=== PATIENT | male | born 1955 | race Caucasian/White ===

== ENCOUNTER 2022-10-30 12:35 | Observation (INO) | payer MEDICARE, SELFPAY ==
--- NOTE | ~2022-10-30 | CT_ITS ---
EXAMINATION: CT ABDOMEN AND PELVIS WITHOUT CONTRAST CLINICAL INFORMATION: Obstructing uropathy. COMPARISON: None TECHNIQUE: Multidetector volumetric imaging was performed from the superior aspect of the liver through the pubic symphysis. Sagittal and coronal reformatted images were obtained on the technologist's workstation. This CT examination was performed using dose optimization techniques as appropriate, variously including the following: *Automated exposure control *Adjustment of mA and/or kV according to patient size (this includes techniques or standardized protocols for targeted exams where dose is matched to indication/reason for exam; i.e. extremities or head) *Use of iterative reconstruction technique DLP: 442 mGy-cm FINDINGS: LUNG BASES: Subpleural reticular opacities and mild traction bronchiectasis most notably in the posterior right lung base. Scattered bibasilar coarse and medium reticular opacities. Partial visualization of at scattered moderate scattered coronary artery calcific atherosclerosis. LIVER, GALLBLADDER, AND BILIARY TREE: The liver is normal in size, shape, and attenuation. No focal hepatic lesion or biliary ductal dilatation is present. The gallbladder is unremarkable with no evidence of radiopaque gallstones, gallbladder wall thickening, or obvious pericholecystic inflammatory changes. PANCREAS: Unremarkable. SPLEEN: Unremarkable. ADRENAL GLANDS: Unremarkable. KIDNEYS AND URETERS: A low-lying right pelvic kidney is noted. No hydronephrosis or perinephric inflammatory changes visualized. No urolithiasis noted. BLADDER: A Mejía catheter terminates within the urinary bladder. No bladder calculi visualized. Urinary bladder appears mildly distended. The urinary bladder wall is not distinctly visualized in this noncontrast exam. However findings suspicious for a concentric mural thickening of the urinary bladder suggested taking lines upon a small volume of urine within the urinary bladder utilized as contrast relative to the urinary bladder wall. GASTROINTESTINAL TRACT: The appendix is normal in appearance (series 4 image 506). No free intraperitoneal fluid or gas collections identified. No intestinal dilatation or mural thickening noted. Moderate physiologic distention of the stomach. ABDOMINAL WALL: Right inguinal hernia containing nondilated small bowel segments is noted measuring 5 cm in diameter. Small fat-containing left inguinal hernias visualized. LYMPH NODES: As VASCULAR: Moderate scattered coronary artery calcific atherosclerosis. PELVIC VISCERA: Normal size of the prostate. OSSEOUS STRUCTURES: Moderate intervertebral disc space narrowing and partially visualized posterior broad-based disc bulge L4-L5. No vertebral body compression deformities. CT/CT abdomen pelvis wo IV con IMPRESSION: Unenhanced CT of the abdomen and pelvis: *No urolithiasis or hydronephrosis noted. *Low-lying right pelvic kidney. *Mejía catheter within the urinary bladder. Findings suspicious for concentric mural thickening of the urinary bladder are present and may indicate cystitis or mural trabeculation of the urinary bladder related to chronic outlet obstruction. *Right inguinal hernia containing nonincarcerated small bowel segments. *Partial visualization of chronic appearing scattered interstitial disease of the lung bases. Fleischner guidelines were followed.
--- NOTE | ~2022-10-30 | CT_ITS ---
EXAMINATION: CT HEAD WITHOUT CONTRAST CLINICAL INFORMATION: Low platelets with hypertension, anemia, rule out bleed COMPARISON: None TECHNIQUE: Contiguous axial imaging was performed from the skull base to vertex without intravenous administration of contrast. This CT examination was performed using dose optimization techniques as appropriate, variously including the following: *Automated exposure control *Adjustment of mA and/or kV according to patient size (this includes techniques or standardized protocols for targeted exams where dose is matched to indication/reason for exam; i.e. extremities or head) *Use of iterative reconstruction technique DLP: 751 mGy-cm FINDINGS: There is no midline shift. There is no mass effect. There is no hemorrhage. The basal cisterns appear patent. The posterior fossa is grossly within normal limits. There is no extra-axial collection. The solomon-white matter some scattered areas of decreased attenuation which may be consistent with white matter ischemic change. Review of the bone windows demonstrates some sinus disease and air canal disease. CT/CT head/brain wo IV con IMPRESSION: Negative acute noncontrast CT of the brain.
[2022-10-30 13:04] VITALS: BP 138/102; PULSE 96; RESP 18; TEMP 36.2; O2SAT 100; BMI 21.9
--- NOTE | 2022-10-30 13:04 | ECG_ITS ---
Test Reason : ABNORMAL LABS Blood Pressure : / mmHG Vent. Rate : 092 BPM Atrial Rate : 092 BPM P-R Int : 144 ms QRS Dur : 076 ms QT Int : 340 ms P-R-T Axes : 070 063 070 degrees QTc Int : 420 ms Normal sinus rhythm with sinus arrhythmia Septal infarct , age undetermined Abnormal ECG When compared with ECG of 16-FEB-2007 08:35, No significant change was found Referred By: Samantha Kilgore Electronically Signed By:PAULINO VELIZ MD
--- NOTE | 2022-10-30 13:06 | ED_ITS ---
HPI - Weakness General Chief complaint: Recheck/Abnormal Lab/Rx <Samantha Kilgore MD - Last Filed: 10/30/22 13:07> Stated complaint: High Potassium Sent By Dr <Samantha Kilgore MD - Last Filed: 10/30/22 13:07> Time Seen by Provider: 10/30/22 17:36 <Samantha Kilgore MD - Last Filed: 10/30/22 13:07> Source: patient <JOSEP Magana - Last Filed: 10/30/22 22:00> Mode of arrival: ambulatory <JOSEP Magana - Last Filed: 10/30/22 22:00> Limitations: no limitations <JOSEP Magana - Last Filed: 10/30/22 22:00> History of Present Illness HPI Narrative: This is a 67-year-old male history significant for kidney problem , hepatitis C presenting to the emergency department for concerns of high potassium, was told by his PCP that his potassium level was elevated and he had to come to the emergency department for further evaluation and treatment. Patient tells me he is feeling fine and has no medical complaints today. He just wanted to come to get his potassium level normalized. Patient denies chest pain, shortness of breath, nausea, vomiting, abdominal pain, fevers, chills, upper respiratory symptoms, diarrhea, constipation, lower extremity swelling, headache, vision changes in dizziness. To note patient does report he was recently discharged from [facility] for his kidneys shutting down and was in short-term rehab at [facility] for a while, was noted to be hypertensive in triage. <JOSEP Magana - Last Filed: 10/30/22 22:00> Related Data Allergies/Adverse reactions: Allergies Allergy/AdvReac Type Severity Reaction Status Date / Time No Known Allergies Allergy Verified 10/30/22 13:04 <Samantha Kilgore MD - Last Filed: 10/30/22 13:07> Review of Systems Review of Systems: Constitutional : No Weight loss, No Fever, No Chills, No Fatigue, No Malaise ENT/Mouth : No sore throat, No Rhinorrhea Eyes: No Eye Pain, No Swelling, No Redness Cardiovascular : No Chest Pain, No SOB, No Dyspnea on Exertion, No Orthopnea, No Edema, No Palpitations Respiratory : No Cough, No Sputum, No Wheezing Gastrointestinal : No Nausea, No Vomiting, No Diarrhea, No Constipation, No abdominal Pain, No Hematochezia, No Melena Genitourinary : No Dysuria, No Urinary Frequency, No Hematuria, Musculoskeletal : No joint pain, No Myalgias, No Joint Swelling Skin : No Skin Lesions, No rash Neuro : No Weakness, No Numbness, No Dizziness, No Headache Psych : No Anxiety/Panic, No Depression All other systems reviewed and are negative <JOSEP Magana - Last Filed: 10/30/22 22:00> Yes all other systems are reviewed and are negative <JOSEP Magana - Last Filed: 10/30/22 22:00> [facility] Past Medical History Attestation statement: The following information was validated with the patient. <JOSEP Magana - Last Filed: 10/30/22 22:00> Source: old records reviewed and nursing notes reviewed <JOSEP Magana - Last Filed: 10/30/22 22:00> Social History Social History: Social History Alcohol intake: former Smoked in Last 30 Days: Yes Advance Directives: Yes Advance Directives Information Provided: Yes Advance Directives on File: No <Samantha Kilgore MD - Last Filed: 10/30/22 13:07> Physical Exam Vital Signs: Vital Signs: Last Vital Signs Temp 98.1 F 10/30/22 21:52 Pulse 106 H 10/30/22 21:52 Resp 22 H 10/30/22 21:52 BP 109/61 10/30/22 21:52 Pulse Ox 99 10/30/22 21:52 O2 Del Method 10/30/22 21:52 BMI result Body Mass Index 21.9 <Samantha Kilgore MD - Last Filed: 10/30/22 13:07> Vital Signs: Last Vital Signs Temp 98.1 F 10/30/22 21:52 Pulse 106 H 10/30/22 21:52 Resp 22 H 10/30/22 21:52 BP 109/61 10/30/22 21:52 Pulse Ox 99 10/30/22 21:52 O2 Del Method 10/30/22 21:52 BMI result Body Mass Index 21.9 HTN noted. All other vital signs stable. Patient without symptoms of hypertension. <JOSEP Magana - Last Filed: 10/30/22 22:00> Appearance: Alert.? Oriented X3.? No acute distress.? Head: Normocephalic, atraumatic, no step-offs or deformities Eyes: Pupils equal, round and reactive to light.? CVS: Normal heart rate and rhythm.? Pulses normal.? Respiratory: No respiratory distress.? Breath sounds normal.? Abdomen: Soft and nontender.? Skin: Skin warm and dry.? Normal skin color.? Normal skin turgor.? Extremities: No lower extremity edema.? No calf ttp. 5/5 strength to bilateral upper and lower extremities Back: No midline tenderness, no C-spine tenderness, full range of motion, no CVA tenderness bilaterally Neuro: Oriented X 3.? No motor deficit.? No sensory deficit. CN 2-12 intact . Normal [id number], [id number], steady tandem gait. <JOSEP Magana - Last Filed: 10/30/22 22:00> Course Course Course Narrative: rme patient is a 67-year-old male sent in by his primary physician for elevated potassium. Patient denies having any symptoms. No cough no congestion or pressure symptoms. Patient notes that he has a previous history of kidney problems. No chest pain or shortness of breath no dizziness. A stat chemistry was ordered. An EKG was ordered. Patient will need to be on a monitor until the electrolytes returned. <Samantha Kilgore MD - Last Filed: 10/30/22 13:07> Reevaluation(s) Reevaluation #1: Patient is noted to have a macrocytic anemia hemoglobin 8.7, hematocrit 27.5 MCV of 100, patient not reporting any bleeding. Platelet count 84, unsure of patient's baseline. Given the fact he is hypertensive and has low platelets will obtain a head scan to rule out spontaneous bleed in the head. Chemistry significant for elevated potassium 5.3 will give IV fluids as well as Lokelma 10 mg, and re-evaluate patient. Patient also noted to have an acute kidney injury, he will receive IV fluids and a BMP will be rechecked. <JOSEP Magana - Last Filed: 10/30/22 22:00> Time: 17:47 <JOSEP Magana - Last Filed: 10/30/22 22:00> Reevaluation #2: Patient's potassium 5.4 worsening BETSY BUN 65, creatinine 2.05 despite fluid hydration. Patient continues to be asymptomatic. No changes on EKG. Will discuss this case with hospitalist for admission. Obtained records from [facility] that show that patient was seen there from 10/06- 10/13 he was there with hyperkalemia, hyponatremia, MSSA sepsis, urinary retention. He was also diagnosed with hepatitis C while in the hospital. They determined that the BETSY was post renal, he failed a voiding trial while there, patient without urinary complaints today. His BETSY improved with administration of Mejía catheterization and gentle IV fluid resuscitation. While at [facility] his BUN was 61, creatinine of 3.2. <JOSEP Magana - Last Filed: 10/30/22 22:00> Time: 21:55 <JOSEP Magana - Last Filed: 10/30/22 22:00> Reevaluation #3: Will be admitted. <JOSEP Magana - Last Filed: 10/30/22 22:00> Time: 22:00 <JOSEP Magana - Last Filed: 10/30/22 22:00> Medications Administered Discontinued Medications Generic Name Dose Route Start Last Admin Trade Name Alvarezq PRN Reason Stop Dose Admin Albuterol Sulfate 7.5 mg/ 10 mg 10/30/22 19:53 10/30/22 20:10 Albuterol Sulfate 2.5 mg INHALE 10/30/22 19:54 10 mg ONCE ONE Administration Dextrose 25 gm 10/30/22 19:53 10/30/22 20:28 Dextrose 50 % 25 Gm/50 Ml Syringe IVPUSH 10/30/22 19:54 25 gm ONCE ONE Administration Dextrose 25 gm 10/30/22 19:53 10/30/22 20:29 Dextrose 50 % 25 Gm/50 Ml Syringe IVPUSH 10/30/22 19:54 25 gm ONCE ONE Administration Sodium Chloride 1,000 mls @ 999 mls/hr 10/30/22 17:45 10/30/22 21:49 Ns IV 10/30/22 18:45 Infused .Q1H1M ABEBA Infusion Calcium Gluconate 1 gm in 50 mls @ 50 mls/hr 10/30/22 19:53 10/30/22 21:51 Calcium Gluconate IV 10/30/22 20:52 Infused ONCE ONE Infusion Insulin Human Regular 10 unit 10/30/22 19:53 10/30/22 20:27 Insulin Regular, Human 100 Unit/Ml 3 Ml Vial IVPUSH 10/30/22 19:54 10 unit ONCE ONE Administration Sodium Zirconium Cyclosilicate 10 gm 10/30/22 17:37 10/30/22 18:22 Sodium Zirconium Cyclosilicate 10 Gm Powd.Pack PO 10/30/22 17:38 10 gm ONCE ONE Administration <Samantha Kilgore MD - Last Filed: 10/30/22 13:07> Medications Administered Discontinued Medications Generic Name Dose Route Start Last Admin Trade Name Freq PRN Reason Stop Dose Admin Albuterol Sulfate 7.5 mg/ 10 mg 10/30/22 19:53 10/30/22 20:10 Albuterol Sulfate 2.5 mg INHALE 10/30/22 19:54 10 mg ONCE ONE Administration Dextrose 25 gm 10/30/22 19:53 10/30/22 20:28 Dextrose 50 % 25 Gm/50 Ml Syringe IVPUSH 10/30/22 19:54 25 gm ONCE ONE Administration Dextrose 25 gm 10/30/22 19:53 10/30/22 20:29 Dextrose 50 % 25 Gm/50 Ml Syringe IVPUSH 10/30/22 19:54 25 gm ONCE ONE Administration Sodium Chloride 1,000 mls @ 999 mls/hr 10/30/22 17:45 10/30/22 21:49 Ns IV 10/30/22 18:45 Infused .Q1H1M ABEBA Infusion Calcium Gluconate 1 gm in 50 mls @ 50 mls/hr 10/30/22 19:53 10/30/22 21:51 Calcium Gluconate IV 10/30/22 20:52 Infused ONCE ONE Infusion Insulin Human Regular 10 unit 10/30/22 19:53 10/30/22 20:27 Insulin Regular, Human 100 Unit/Ml 3 Ml Vial IVPUSH 10/30/22 19:54 10 unit ONCE ONE Administration Sodium Zirconium Cyclosilicate 10 gm 10/30/22 17:37 10/30/22 18:22 Sodium Zirconium Cyclosilicate 10 Gm Powd.Pack PO 10/30/22 17:38 10 gm ONCE ONE Administration <JOSEP Magana - Last Filed: 10/30/22 22:00> Medical Decision Making Medical Decision Making [facility] Narrative: 1745 67-year-old male presents for elevated potassium from PCP. Unsure what his potassium level was. Recently discharged from [facility] and was in rehab for short amount of time. Noted to be hypertensive in triage no medical complaints at this time. Physical exam benign. NIH stroke scale 0. Neuro nonfocal. Plan at this time is to re-obtain labs will rule out lab error/hemolysis as primary cause of hyperkalemia. Will also obtain EKG to rule out dysrhythmia/abnormalities. <JOSEP Magana - Last Filed: 10/30/22 22:00> Critical Care Time Critical Care Time Critical Care Time: Yes <JOSEP Magana - Last Filed: 10/30/22 22:00> Total Critical Care Time: 35 <JOSEP Magana - Last Filed: 10/30/22 22:00> Attestation: I attest to this time spent taking care of the patient, obtaining history, physical, reviewing labs, imaging, speaking to my attending, obtaining records from [facility] and reviewing them. <JOSEP Magana - Last Filed: 10/30/22 22:00> Discharge Plan Discharge Clinical Impression: Abnormal laboratory test, Acute hyperkalemia, BETSY (acute kidney injury), Anemia, macrocytic <Samantha Kilgore MD - Last Filed: 10/30/22 13:07> Patient Disposition: Home, Self-Care <Samantha Kilgore MD - Last Filed: 10/30/22 13:07> Instructions: Acute Kidney Injury (DC), Hyperkalemia (ED), Anemia (ED) <Samantha Kilgore MD - Last Filed: 10/30/22 13:07> Additional Instructions: Take your medications as prescribed. If you were prescribed antibiotics today, it is important that you take your medication to their entirety, do not skip any doses, do not finish them early. Follow-up with your primary care provider this week. Return to the emergency department with new or worsening symptoms. Such as fevers, chills, chest pain, shortness of breath, nausea, vomiting, dizziness, headache, vision changes, lethargy In case of emergency call 911 Your potassium was noted to be elevated at 5.3, your given a medication called Lokelma and your potassium normalized. He was also noted to be anemic on labor atory studies, please follow-up with your primary care provider in regards to this issue. If you start bleeding per rectum or vomiting blood or bleeding from anywhere you should report to emergency department immediately. You also noted to have an acute kidney injury that improved after fluid hydration, please speak to your PCP about this issue as well. <Samantha Kilgore MD - Last Filed: 10/30/22 13:07> Referrals: Yrn Gonsales MD [Primary Care Provider] - 2 days <Samantha Kilgore MD - Last Filed: 10/30/22 13:07>
[2022-10-30 13:32] LABS: MANUAL DIFF FLAG NO
[2022-10-30 13:34] LABS: Basophils Percent Auto 0.6 % (0-2); Eosinophils Absolute Auto 0.2 X10*3/uL (0.0-0.4); Eosinophils Percent Auto 3.3 % (0-4); Hematocrit 27.5 % (42.0-52.0); Hemoglobin 8.7 g/dl (14.0-18.0); Imm Gran Abs Auto 0.04 X10*3/uL (0.00-0.03); Imm Gran Pct Auto 0.6 % (0.0-0.4); Lymphocytes Absolute Auto 1.8 X10*3/uL (1.2-4.9); Lymphocytes Percent Auto 25.9 % (20-40); Mean Corpuscular HGB Conc 31.6 g/dl (31.0-36.0); Mean Corpuscular Hemoglobin 31.6 pg (27.0-33.0); Monocytes Absolute Auto 0.5 X10*3/uL (0.1-1.2); Monocytes Percent Auto 7.7 % (2-11); Neutrophils Absolute Auto 4.3 x10*3/uL (2.0-8.3); Neutrophils Percent Auto 61.9 % (45-73); Red Blood Count 2.75 X10*6/uL (4.60-5.80); Red Cell Distribution Width 14.7 % (11.0-16.0)
[2022-10-30 13:53] LABS: Anion Gap 13 (12-20); Blood Urea Nitrogen 73 mg/dL (9-16); Calcium 8.9 mg/dL (8.4-10.2); Carbon Dioxide 22 mmol/L (22-29); Chloride 108 mmol/L (96-108); Creatinine Clr Calc Pharmacy 34.2; Estimated Glomerular Filt Rate 36; Glucose Random 88 mg/dL (60-115); Magnesium 1.6 mg/dL (1.6-2.6); Mean Platelet Volume 9.5 fL (9.4-12.4); Platelet Count 84 X10*3/uL (160-400); Potassium 5.4 mmol/L (3.3-5.1); Sodium 138 mmol/L (135-145)
[2022-10-30 18:00] VITALS: BP 143/94; PULSE 73; RESP 19; TEMP 36.9; O2SAT 100
[2022-10-30] MEDS: 0.9 % Sodium Chloride 1,000 ML 999 ML IV (18:04)
[2022-10-30] MEDS: Sodium Zirconium Cyclosilicate 10 GM POWD.PACK PO (18:22)
--- NOTE | 2022-10-30 18:39 | PC.NURSE ---
patient a/ox4 . pearrla , patient has glasses . heart rate regular at 78 beats per minute . breathing even and unlabored . skin pink warm and dry . abdomen soft . positive bowel sounds in all four quadrants . patient on director of cardiac cath lab . Iv placed in left A.C fluids started as ordered . patient has hoff catheter from home , currently has leg bag . sent in by provider for high potassium levels . medicated with Lokalma as ordered . patient aware of plan of care .
[2022-10-30 19:27] VITALS: BP 125/89; PULSE 76; RESP 21; TEMP 36.9; O2SAT 100
[2022-10-30 19:49] LABS: Alanine Aminotransferase 33 U/L (0-40); Albumin Level 3.2 g/dL (3.5-5.0); Alkaline Phosphatase 62 U/L (39-117); Anion Gap 12 (12-20); Aspartate Amino Transferase 35 U/L (5-37); Bilirubin Total 0.2 mg/dL (0.0-1.0); Blood Urea Nitrogen 66 mg/dL (9-16); Calcium 8.9 mg/dL (8.4-10.2); Carbon Dioxide 25 mmol/L (22-29); Chloride 106 mmol/L (96-108); Creatinine Clr Calc Pharmacy 33.3; Estimated Glomerular Filt Rate 35; Glucose Random 150 mg/dL (60-115); Potassium 5.9 mmol/L (3.3-5.1); Sodium 137 mmol/L (135-145); Total Protein 7.1 g/dL (6.5-8.0)
[2022-10-30] MEDS: Albuterol Sulfate 7.5 MG, Albuterol Sulfate (0.083%) 2.5 MG 10 MG INHALE (20:10)
[2022-10-30 20:12] VITALS: PULSE 73; RESP 16; O2SAT 100
[2022-10-30] MEDS: Insulin Regular, Human 100 UNIT/ML 3 ML VIAL 10 UNIT IVPUSH (20:27)
[2022-10-30] MEDS: Dextrose 50 % 25 GM/50 ML SYRINGE IVPUSH ×2 (20:28→20:29)
[2022-10-30] MEDS: Calcium Gluconate/NaCl,Iso-Osm 1 GM/50 ML PLAST..BAG IV (20:29)
[2022-10-30 21:33] LABS: Alanine Aminotransferase 31 U/L (0-40); Alkaline Phosphatase 59 U/L (39-117); Anion Gap 13 (12-20); Aspartate Amino Transferase 29 U/L (5-37); Bilirubin Total 0.2 mg/dL (0.0-1.0); Blood Urea Nitrogen 65 mg/dL (9-16); Calcium 8.5 mg/dL (8.4-10.2); Carbon Dioxide 23 mmol/L (22-29); Chloride 106 mmol/L (96-108); Creatinine Clr Calc Pharmacy 31.4; Estimated Glomerular Filt Rate 32; Glucose Random 310 mg/dL (60-115); Potassium 5.4 mmol/L (3.3-5.1); Sodium 137 mmol/L (135-145); Total Protein 6.5 g/dL (6.5-8.0)
[2022-10-30 21:52] VITALS: BP 109/61; PULSE 106; RESP 22; TEMP 36.7; O2SAT 99
--- NOTE | 2022-10-30 22:05 | PHA.MEDREC ---
Pharmacy Consult ? Medication Reconciliation Pharmacy has completed the medication reconciliation.
--- NOTE | 2022-10-30 23:12 | PC.NURSE ---
pt has pre-existing hoff catheter in place. patient requested assistance switching from leg collection bag to larger collection bag. this rn assisted pt in switching bag over
[2022-10-31 00:14] VITALS: BP 106/64; PULSE 84; RESP 18; TEMP 36.3; O2SAT 97
[2022-10-31 00:34] LABS: Glucose, Whole Blood 46 mg/dL (60-115)
--- NOTE | 2022-10-31 00:40 | P.HPHOSP_ITS ---
History of Present Illness Date of Service: 10/31/22 Chief Complaint: High potassium This is a 67-year-old male with pertinent history of hep C (untreated), urinary obstruction who was sent to the emergency department by his PCP for evaluation of hyperkalemia and BETSY. Patient was recently admitted at [facility] and discharged on 10/13 for postrenal BETSY. Hep C was diagnosed during hospital course. Patient failed voiding trial and was discharged on Mejía catheter for repeat voiding trial. Patient had been seen a doctor for years and was established with a PCP which she saw 2 days ago. Blood work was done and he was noted to have an BETSY and high potassium and was sent to the ER for further evaluation. Patient has no complaints and denies fever, chills, chest discomfort, shortness of breath, abdominal pain, changes in urinary or bowel habits. Of note, patient was admitted at [facility] from 10/06 to 10/17 urine retention, post renal BETSY, hyperkalemia, hyponatremia and MSSA bacteremia. He was discharg ed with a Mejía catheter and on cefazolin with end date 10/21. In the emergency department, patient was found have an elevated creatinine and hyperkalemia. Review of Systems Constitutional: Constitutional: Reports no additional constitutional complaints Cardiovascular: Cardiovascular: Reports no additional cardiovascular complaints Respiratory: Respiratory: Reports no additional respiratory complaints Gastrointestinal: Gastrointestinal: Reports no additional gastrointestinal complaints Genitourinary: Genitourinary: Reports no additional male genitourinary complaints [facility] Medical History (Updated 10/31/22 @ 00:54 by Celi Dorsey MD) Hepatitis C test positive MSSA bacteremia Urinary retention Pertinent family history: Does not of significant medical history in first-degree relatives Social History Alcohol intake: former Smoked in Last 30 Days: Yes Advance Directives: Yes Advance Directives Information Provided: Yes Advance Directives on File: No Meds Allergies Allergy/AdvReac Type Severity Reaction Status Date / Time No Known Allergies Allergy Verified 10/30/22 13:04 Active Medications: Current Medications Pharmacy Consult (Consult Rx Perform Med Rec) 1 each MISCELLANE ONCE PRN PRN Reason: Consult order Home Medications Medication Instructions Recorded Confirmed Last Taken Type famotidine 40 mg tablet 1 tab PO DAILY 10/30/22 10/30/22 10/30/22 History fluticasone propionate 50 1 spray intranasal DAILY 10/30/22 10/30/22 10/30/22 History mcg/actuation nasal spray,suspension Physical Exam Vital Signs and Narrative: Vital Signs: Last Vital Signs Temp 97.4 F 10/31/22 00:14 Pulse 84 10/31/22 00:14 Resp 18 10/31/22 00:14 BP 106/64 10/31/22 00:14 Pulse Ox 97 10/31/22 00:14 O2 Del Method 10/31/22 00:14 BMI result Body Mass Index 21.9 Middle-aged male lying in bed in no distress Neck supple, no JVD Regular rate and rhythm, S1-S2 heard Regular breath sounds bilaterally, no wheezing or crackles appreciated Abdomen soft nontender, no guarding, no rigidity, urinary catheter in place Patient is awake, alert and oriented to self, place, time and person ; no focal motor deficit Psych: Normal mood No pedal edema Results Labs CBC and Chem 7: 10/30/22 13:28 10/30/22 21:09 Labs: Laboratory Results - last 24 hr 10/30/22 10/30/22 10/30/22 13:28 13:28 19:22 MCV 100.0 H MCH 31.6 MCHC 31.6 RDW 14.7 Plt Count 84 L MPV 9.5 Immature Gran % (Auto) 0.6 H Neut % (Auto) 61.9 Lymph % (Auto) 25.9 Powell % (Auto) 7.7 Eos % (Auto) 3.3 Baso % (Auto) 0.6 Lymph # (Auto) 1.8 Powell # (Auto) 0.5 Eos # (Auto) 0.2 Baso # (Auto) 0.0 Abs Immat Gran (auto) 0.04 H Absolute Neuts (auto) 4.3 Absolute Nucleated RBC 0.000 Nucleated RBC % (auto) 0.0 Anion Gap 13 12 Estim Creat Clear Calc 34.2 33.3 Estimated GFR 36 35 POC Glucose Random Glucose 88 150 H Calcium 8.9 8.9 Magnesium 1.6 Total Bilirubin 0.2 AST 35 ALT 33 Alkaline Phosphatase 62 Total Creatine Kinase 35 L Total Protein 7.1 Albumin 3.2 L 10/30/22 10/31/22 21:09 00:31 MCV MCH MCHC RDW Plt Count MPV Immature Gran % (Auto) Neut % (Auto) Lymph % (Auto) Powell % (Auto) Eos % (Auto) Baso % (Auto) Lymph # (Auto) Powell # (Auto) Eos # (Auto) Baso # (Auto) Abs Immat Gran (auto) Absolute Neuts (auto) Absolute Nucleated RBC Nucleated RBC % (auto) Anion Gap 13 Estim Creat Clear Calc 31.4 Estimated GFR 32 POC Glucose 46 L* Random Glucose 310 H Calcium 8.5 Magnesium Total Bilirubin 0.2 AST 29 ALT 31 Alkaline Phosphatase 59 Total Creatine Kinase Total Protein 6.5 Albumin 3.0 L Imaging Radiologist's Impressions: Impressions Head CT 10/30/22 17:45 IMPRESSION: Negative acute noncontrast CT of the brain. Abdomen/Pelvis CT 10/30/22 22:40 IMPRESSION: Unenhanced CT of the abdomen and pelvis: *No urolithiasis or hydronephrosis noted. *Low-lying right pelvic kidney. *Mejía catheter within the urinary bladder. Findings suspicious for concentric mural thickening of the urinary bladder are present and may indicate cystitis or mural trabeculation of the urinary bladder related to chronic outlet obstruction. *Right inguinal hernia containing nonincarcerated small bowel segments. *Partial visualization of chronic appearing scattered interstitial disease of the lung bases. Fleischner guidelines were followed. Assessment and Plan (1) Acute hyperkalemia: Status: Acute (2) Urinary retention: Status: Acute (3) Hepatitis C test positive: Status: Acute (4) BETSY (acute kidney injury): Status: Acute (5) Anemia, macrocytic: Status: Acute Plan This is a 67-year-old male with pertinent history of hep C (untreated), urinary obstruction who was sent to the emergency department by his PCP for evaluation of hyperkalemia and BETSY. #. Elevated creatinine -at discharge from [facility], his creatinine was down from 13 to 3.1. -At presentation this visit, his creatinine 1.88..>2.05. Likely new baseline. Unclear etiology. Obtain records from [facility]. Consulting Nephrology -resuscitated with IV crystalloids in the ER. Monitor creatinine and urine output. Avoid nephrotoxins -UA pending #. Hyperkalemia -received temporizing measures in the ER. Administering Lokelma. Will admit with telemetry #. Hepatitis-C: Diagnosed while at [facility]. Will need outpatient follow-up and treatment #. Urinary retention: Failed voiding trial at [facility]. Initiated Flomax. Will need urology outpatient follow-up or repeat voiding trial #. Elevated blood glucose: No history of diabetes. Initiated Accu-Cheks with sliding scale insulin. Obtaining A1c #. Macrocytic anemia: Obtain B12, folic acid DVT prophylaxis: Lovenox 40 mg daily Full code Regular diet Quality Stroke Does the patient have a stroke diagnosis?: No VTE Prior VTE?: No VTE Risk Level:: Medical - moderate - high VTE Device Contraindication: Treatment Not Indicated VTE Drug Contraindication: N/A - Med Ordered
--- NOTE | 2022-10-31 00:46 | PC.NURSE ---
this rn contacted dr sanchez regarding recheck of POC. per recheck POC at this time. md at bedside discussed plan of care at this time. POC 46. med and this rn aware. per md provide pt with food and drink recheck POC in 1 hour.
--- NOTE | 2022-10-31 01:24 | PC.NURSE ---
repeat poc performed by this rn. poc 135. dr sanchez made aware.
[2022-10-31 01:28] LABS: Glucose, Whole Blood 135 mg/dL (60-115)
[2022-10-31] MEDS: Tamsulosin HCL 0.4 MG CAPSULE PO ×2 (01:28→20:51)
[2022-10-31] MEDS: Enoxaparin Sodium 40 MG/0.4 ML SYRINGE SUBCUT (01:29)
[2022-10-31 04:18] VITALS: BP 119/76; PULSE 74; RESP 18
[2022-10-31 06:37] LABS: Appearance Urine Clear; Color Urine Yellow; Glucose Urine UA Negative (Negative); Leukocyte Esterase Urine Small (1+) (Negative); Nitrite Urine Negative (Negative); PH 6.5 (5.0-9.0); Specific Gravity - Urine <= 1.005 (1.005-1.025); UMIC TRIGGER UACC YES; Urine Blood Small (1+) (Negative); Urine Ketones Negative (Negative); Urine Protein Negative (Neg-Trace)
[2022-10-31 06:43] LABS: Bacteria Urine None Seen (None Seen); Hyaline Casts Urine 0-2 /LPF (0-2); RBC Urine 0-2 /HPF (0-2); Squamous Epithelial Cell Urine 0-2 /HPF (0-2); UACC Culture Trigger YES; WBC Urine 0-5 /HPF (0-5)
[2022-10-31 06:51] LABS: MANUAL DIFF FLAG NO
[2022-10-31 06:53] LABS: Basophils Percent Auto 0.3 % (0-2); Eosinophils Absolute Auto 0.2 X10*3/uL (0.0-0.4); Eosinophils Percent Auto 2.5 % (0-4); Hematocrit 24.4 % (42.0-52.0); Hemoglobin 7.9 g/dl (14.0-18.0); Imm Gran Abs Auto 0.04 X10*3/uL (0.00-0.03); Imm Gran Pct Auto 0.5 % (0.0-0.4); Lymphocytes Absolute Auto 2.1 X10*3/uL (1.2-4.9); Lymphocytes Percent Auto 27.4 % (20-40); Mean Corpuscular HGB Conc 32.4 g/dl (31.0-36.0); Mean Corpuscular Hemoglobin 31.7 pg (27.0-33.0); Monocytes Absolute Auto 0.6 X10*3/uL (0.1-1.2); Neutrophils Absolute Auto 4.6 x10*3/uL (2.0-8.3); Neutrophils Percent Auto 61.3 % (45-73); Platelet Count 74 X10*3/uL (160-400); Red Blood Count 2.49 X10*6/uL (4.60-5.80); Red Cell Distribution Width 14.6 % (11.0-16.0); White Blood Count 7.6 X10*3/uL (4.8-10.8)
[2022-10-31 07:10] LABS: Estimated Average Glucose 100 mg/dL; Hemoglobin A1C 82.8587 umol/L; Hemoglobin A1c % 5.1 %
[2022-10-31 07:11] LABS: Anion Gap 12 (12-20); Blood Urea Nitrogen 65 mg/dL (9-16); Calcium 8.4 mg/dL (8.4-10.2); Carbon Dioxide 24 mmol/L (22-29); Chloride 108 mmol/L (96-108); Creatinine Clr Calc Pharmacy 31.4; Estimated Glomerular Filt Rate 32; Glucose Random 93 mg/dL (60-115); Potassium 5.3 mmol/L (3.3-5.1); Sodium 139 mmol/L (135-145)
[2022-10-31 07:29] VITALS: BP 122/77; PULSE 71; RESP 16; TEMP 36.7; O2SAT 98
[2022-10-31 07:34] LABS: Glucose, Whole Blood 95 mg/dL (60-115)
[2022-10-31 07:48] LABS: Folate 8.7 ng/mL (> or = 4.0); Vitamin B12 351 pg/mL (200-900)
[2022-10-31] MEDS: Famotidine 20 MG TABLET 40 MG PO (08:22)
[2022-10-31] MEDS: Sodium Zirconium Cyclosilicate 10 GM POWD.PACK PO ×3 (08:23→20:51)
[2022-10-31] MEDS: 0.9 % Sodium Chloride Flush 3 ML SYRINGE IVFLUSH ×3 (08:23→22:19)
--- NOTE | 2022-10-31 08:30 | PC.NURSE ---
pt alert and oriented, skin pwd, respirations even and unlabored, ls clear, pt denies pain at this time, vs stable and ns on the monitor.
[2022-10-31 10:20] LABS: COVID-19 Test Negative (Negative); IDNOW Serial# 9DB6401D
--- NOTE | 2022-10-31 11:44 | P.CONNP_ITS ---
History of Present Illness Reason for Consult Consult date: 10/31/22 Chief Complaint Chief complaint: High Potassium PMFSH Past Medical History Medical History (Updated 11/01/22 @ 17:16 by Madison Hogan MD) Hepatitis C test positive MSSA bacteremia Urinary retention Social History Social History Household Members: None Housing: House Do you presently have visiting nurse or other home services: No Alcohol intake: former Patient Tobacco Use Status: Current everyday Tobacco user Tobacco use type: Cigarette Cigarette Packs Per Day: 1.5 Cigarettes Per Day: 30.0 Smoked in Last 30 Days: Yes Patient Interested in Nicotine Replacement: Yes Use of substances other than those prescribed or required for medical reasons: No Currently Displaying Signs/Symptoms of Drug Intoxication Withdrawal: No Have you been hit, kicked, punched, or otherwise hurt by someone within the past year? If so, by whom?: No Do you feel safe in your current relationship?: No Current Relationship Is there a partner from a previous relationship who is making you feel unsafe now?: No Are you made to feel afraid or neglected: No Advance Directives: Yes Advance Directives on File: Yes Advance Directives Date on File: 10/31/22 Do you have thoughts of harming others: None Do you have a plan to hurt others: No Plan Recently lost weight without trying: No Nutrition Risks: No Nutritional Risk service: No Current occupational status: retired [employer] Allergies Allergy/AdvReac Type Severity Reaction Status Date / Time No Known Allergies Allergy Verified 10/30/22 13:04 Active Medications: Current Medications Acetaminophen (Acetaminophen 325 Mg Tablet) 650 mg PO Q6H PRN PRN Reason: Pain, Mild (Pain Scale 1-3) Dextrose (Dextrose 50 % 25 Gm/50 Ml Syringe) 25 gm IVPUSH Q15M PRN; Protocol PRN Reason: per Hypoglycemia Standing Ord. Enoxaparin Sodium (Enoxaparin Sodium 40 Mg/0.4 Ml Syringe) 40 mg SUBCUT Q24H [facility] Last Admin: 10/31/22 01:29 Dose: 40 mg Famotidine (Famotidine 20 Mg Tablet) 40 mg PO DAILY [facility] Last Admin: 10/31/22 08:22 Dose: 40 mg Fluticasone Propionate (Fluticasone Propionate Nasal 16 Gm [place]) 1 spray NOST RIL-B DAILY [facility] Glucose (Glucose Gel 15 Gm Gel..Gram.) 15 gm PO Q15M PRN; Protocol PRN Reason: per Hypoglycemia Standing Ord. Insulin Human Lispro (Insulin Lispro 100 Unit/Ml 3 Ml Vial) 0 unit SUBCUT Q6H [facility]; Protocol Last Admin: 10/31/22 08:08 Dose: Not Given Melatonin (Melatonin 3 Mg Tablet) 6 mg PO BEDTIME PRN PRN Reason: Insomnia Ondansetron HCl (Ondansetron Hcl 4 Mg/2 Ml Vial) 4 mg IVPUSH Q8H PRN PRN Reason: Nausea and Vomiting Pharmacy Consult (Consult Rx Perform Med Rec) 1 each MISCELLANE ONCE PRN PRN Reason: Consult order Sodium Chloride (0.9 % Sodium Chloride Flush 3 Ml Syringe) 3 ml IVFLUSH QSHIFT [facility] Last Admin: 10/31/22 08:23 Dose: 3 ml Sodium Zirconium Cyclosilicate (Sodium Zirconium Cyclosilicate 10 Gm Powd.Pack) 10 gm PO TID [facility] Stop: 11/01/22 21:01 Last Admin: 10/31/22 08:23 Dose: 10 gm Tamsulosin HCl (Tamsulosin Hcl 0.4 Mg Capsule) 0.4 mg PO BEDTIME [facility] Last Admin: 10/31/22 01:28 Dose: 0.4 mg Home Medications Medication Instructions Recorded Confirmed Last Taken Type famotidine 40 mg tablet 1 tab PO DAILY 10/30/22 10/30/22 10/30/22 History fluticasone propionate 50 1 spray intranasal DAILY 10/30/22 10/30/22 10/30/22 History mcg/actuation nasal spray,suspension Physical Exam Vital Signs: Last Vital Signs Temp 98.0 F 10/31/22 07:29 Pulse 71 10/31/22 07:29 Resp 16 10/31/22 07:29 BP 122/77 10/31/22 07:29 Pulse Ox 98 10/31/22 07:29 O2 Del Method 10/31/22 07:29 BMI result Body Mass Index 21.9 Results Lab Results Result Diagrams: 10/31/22 06:23 11/02/22 07:56 Lab results: Chemistry 10/30/22 10/30/22 10/30/22 13:28 19:22 21:09 Sodium 138 137 137 Potassium 5.4 H 5.9 H 5.4 H Carbon Dioxide 22 25 23 BUN 73 H 66 H 65 H Creatinine 1.88 H 1.93 H 2.05 H Calcium 8.9 8.9 8.5 10/31/22 06:23 Sodium 139 Potassium 5.3 H Carbon Dioxide 24 BUN 65 H Creatinine 2.05 H Calcium 8.4 Hematology 10/30/22 10/31/22 13:28 06:23 WBC 7.0 7.6 Hgb 8.7 L 7.9 L Plt Count 84 L 74 L Urinalysis 10/31/22 06:30 Urine Color Yellow Urine Appearance Clear Urine pH 6.5 Ur Specific [place] <= 1.005 Urine Protein Negative Urine Glucose (UA) Negative Urine Ketones Negative Urine Blood Small (1+) H Urine Nitrite Negative Ur Leukocyte Esterase Small (1+) H Urine RBC 0-2 Urine WBC 0-5 Ur Squamous Epith Cells 0-2 Hyaline Casts 0-2 Assessment and Plan (1) BETSY (acute kidney injury): Status: Acute Plan 67 yr old man with BETSY due to Obstructive uropathy Cr was > 12 last month Has a chronic hoff Current Cr is 2.0 - close to baseline Non oliguric No obstruction on recent imaging Still has mild hyperkalemia h/o MSSA on cefazolin Full consult dictated Procedures Date of Service Date of Service: 10/31/22
[2022-10-31] MEDS: Fluticasone Propionate Nasal 16 GM SPRAY 1 SPRAY NOSTRIL-B (11:48)
[2022-10-31 13:14] LABS: Glucose, Whole Blood 100 mg/dL (60-115)
--- NOTE | 2022-10-31 16:33 | PC.NURSE ---
pt requesting nicotine patch, messaged JOSEP Ruffin hospitalist
[2022-10-31 18:56] LABS: Glucose, Whole Blood 122 mg/dL (60-115)
[2022-10-31] MEDS: Nicotine 21 MG PATCH.TD24 TRANSDERMA (18:56)
--- NOTE | 2022-10-31 19:35 | PC.NURSE ---
Pt is alert and oriented, states he has no pain and no other complaints. This RN educated pt on reasoning for Lokelma, and blood sugar checks
[2022-10-31 20:00] VITALS: BP 146/102; PULSE 78; RESP 18; TEMP 36.1; O2SAT 97
--- NOTE | 2022-10-31 23:03 | CONS_ITS ---
DATE OF SERVICE: REASON FOR CONSULT: I was called to see the patient to assist in management of renal insufficiency and hyperkalemia. HISTORY OF PRESENT ILLNESS: To summarize, Shukri is a 67-year-old man who has not sought out any medical care for several years. About 3 weeks ago, he was admitted to [facility] where he had acute kidney injury. Serum creatinine was more than 12. He had obstructive uropathy with bilateral hydronephrosis. A Mejía catheter was inserted in the rectum. The serum creatinine promptly improved, and at the time of discharge on October 17, the creatinine was around 3.1 mg/dL. He was discharged to [facility] with a Mejía catheter. He also had MSSA infection for which he was being treated with cefazolin. There is a history of untreated hepatitis C as well. He has been admitted because of mild hyperkalemia with a potassium in the range of 5.5 and 5.9, and this consultation is requested for management of the chronic kidney disease and hyperkalemia. Ongoing medical problems include history of hepatitis C untreated, history of obstructive uropathy with chronic Mejía catheter, history of MSSA infection. FAMILY HISTORY: Not significant for this admission. SOCIAL HISTORY: History of alcohol intake in the past. He does not drink as of now. No history of any smoking at present. ALLERGIES: NO KNOWN DRUG ALLERGIES. MEDICATIONS: At the time of admission were reviewed, which include famotidine and fluticasone. All the current medications were reviewed. REVIEW OF SYSTEMS: No headache, nausea, vomiting. No abdominal pain, diarrhea, constipation. No fever. He has a chronic Mejía catheter in place. No edema. He did have edema in the past, which has improved. No rash. No clubbing. All other systems were reviewed. PHYSICAL EXAMINATION: GENERAL: Today. Shukri is a middle-aged man who appears comfortable, not in distress. NECK: Supple. No JVD. HEENT: Mucosa is moist. LUNGS: Air entry equal. No rales. HEART: S1, S2 heard. No gallop. No rub. ABDOMEN: Soft, nontender. Bowel sounds heard. Mejía catheter in place. NEURO: Alert, awake, oriented. No asterixis. EXTREMITIES: No edema. No rash. No clubbing. VITAL SIGNS: Blood pressure today was 122/71, pulse 71. He is afebrile. LABORATORY DATA: Hemoglobin 7.9, platelets 74. WBC 7.6, sodium 113, potassium 5.3, CO2 24, BUN 63, creatinine 2.05. LFTs are normal. Albumin 3.0. CT abdomen and pelvis in the ER showed low-lying right pelvic kidney. No hydronephrosis. No stones were seen. PROBLEM LIST: 1. Acute kidney injury due to obstructive uropathy. The renal function has been improving over the last several weeks, and creatinine is close to baseline. He is currently nonoliguric. No signs or symptoms of uremia. 2. Hyperkalemia in the setting of obstructive uropathy. It is unclear why his potassium is still elevated. He is not on any medications that could cause hyperkalemia. He is currently nonoliguric. No significant acidosis. High potassium intake could be a possibility. RECOMMENDATIONS: Keep Mejía catheter. Cautious IV hydration with normal saline. Lokelma 10 g p.o. if potassium more than 5.2. Keep him on a low-potassium diet. Check renal panel. No indication for dialysis. We will follow him along with the team. He needs urology followup for the ongoing obstructive uropathy. Davidson Duarte MD BPA/MODL / [phone]
[2022-11-01] VITALS: BP 132/81; PULSE 87; RESP 18; TEMP 37.3; O2SAT 99
[2022-11-01] MEDS: Enoxaparin Sodium 40 MG/0.4 ML SYRINGE SUBCUT (00:17)
[2022-11-01 00:19] LABS: Glucose, Whole Blood 102 mg/dL (60-115)
[2022-11-01 03:52] VITALS: BP 125/87; PULSE 81; RESP 16; TEMP 36.9; O2SAT 96
[2022-11-01 06:12] LABS: Glucose, Whole Blood 79 mg/dL (60-115)
[2022-11-01 08:00] VITALS: BP 147/96; PULSE 70; RESP 20; TEMP 36.6; O2SAT 97
--- NOTE | 2022-11-01 08:50 | MHC.CM.PN ---
CM met with Patient at bedside and addressed MARTIN with him, providing him with the original and placing a copy on the chart. Patient lives alone on the first floor of a 2 family house, with his Sister living upstairs. Home with new [facility] is the goal and CM has initiated and will follow for dc planning. PCP is Dr. Yrn Gonsales and Patient has received Covid/Pfizer vax x2. Patient was recently at [facility] [place] for STR.
[2022-11-01 09:31] LABS: Anion Gap 13 (12-20); Blood Urea Nitrogen 54 mg/dL (9-16); Calcium 8.3 mg/dL (8.4-10.2); Carbon Dioxide 25 mmol/L (22-29); Chloride 103 mmol/L (96-108); Creatinine Clr Calc Pharmacy 33.7; Estimated Glomerular Filt Rate 35; Glucose Random 90 mg/dL (60-115); Potassium 5.2 mmol/L (3.3-5.1); Sodium 136 mmol/L (135-145)
[2022-11-01] MEDS: Famotidine 20 MG TABLET 40 MG PO (09:46)
[2022-11-01] MEDS: Nicotine 21 MG PATCH.TD24 TRANSDERMA (09:46)
[2022-11-01] MEDS: Sodium Zirconium Cyclosilicate 10 GM POWD.PACK PO ×3 (09:46→21:28)
[2022-11-01] MEDS: Fluticasone Propionate Nasal 16 GM SPRAY 1 SPRAY NOSTRIL-B (09:47)
[2022-11-01] MEDS: 0.9 % Sodium Chloride Flush 3 ML SYRINGE IVFLUSH ×3 (09:47→21:28)
--- NOTE | 2022-11-01 11:52 | HO.PM.IMPN ---
Subjective Subjective Date of Service: 11/01/22 Interval History: f/u on hyperkalemia interval history: K still high 5.2 Review of Systems no new issues Physical Exam Vital Signs: Vital Signs: Last Vital Signs Temp 97.8 F 11/01/22 08:00 Pulse 70 11/01/22 08:00 Resp 20 11/01/22 08:00 BP 147/96 H 11/01/22 08:00 Pulse Ox 97 11/01/22 08:00 O2 Del Method 11/01/22 08:00 BMI result Body Mass Index 21.9 Const: Other: General: AO X 3, no acute distress Resp: CTA bilateral CVS: S1,S2,RRR GI: +BS, NT, no distention Skin: No rash Neuro: motor grossly intact Psych: appropriate affect Objective Data Active Medications Acetaminophen (Acetaminophen 325 Mg Tablet) 650 mg PO Q6H PRN PRN Reason: Pain, Mild (Pain Scale 1-3) Dextrose (Dextrose 50 % 25 Gm/50 Ml Syringe) 25 gm IVPUSH Q15M PRN; Protocol PRN Reason: per Hypoglycemia Standing Ord. Enoxaparin Sodium (Enoxaparin Sodium 40 Mg/0.4 Ml Syringe) 40 mg SUBCUT Q24H REPLACED BY [facility] Last Admin: 11/01/22 00:17 Dose: 40 mg Documented By: SOM Famotidine (Famotidine 20 Mg Tablet) 40 mg PO DAILY REPLACED BY [facility] Last Admin: 11/01/22 09:46 Dose: 40 mg Documented By: VICTOR HUGO Fluticasone Propionate (Fluticasone Propionate Nasal 16 Gm [place]) 1 spray NOSTRIL-B DAILY REPLACED BY [facility] Last Admin: 11/01/22 09:47 Dose: 1 spray Documented By: VICTOR HUGO Glucose (Glucose Gel 15 Gm Gel..Gram.) 15 gm PO Q15M PRN; Protocol PRN Reason: per Hypoglycemia Standing Ord. Insulin Human Lispro (Insulin Lispro 100 Unit/Ml 3 Ml Vial) 0 unit SUBCUT Q6H REPLACED BY [facility]; Protocol Last Admin: 11/01/22 05:58 Dose: Not Given Documented By: RASHAD Non-Admin Reason: No Insulin Coverage Melatonin (Melatonin 3 Mg Tablet) 6 mg PO BEDTIME PRN PRN Reason: Insomnia Nicotine (Nicotine 21 Mg Patch.Td24) 21 mg TRANSDERMA DAILY REPLACED BY [facility] Last Admin: 11/01/22 09:46 Dose: 21 mg Documented By: VICTOR HUGO Ondansetron HCl (Ondansetron Hcl 4 Mg/2 Ml Vial) 4 mg IVPUSH Q8H PRN PRN Reason: Nausea and Vomiting Pharmacy Consult (Consult Rx Perform Med Rec) 1 each MISCELLANE ONCE PRN PRN Reason: Consult order Sodium Chloride (0.9 % Sodium Chloride Flush 3 Ml Syringe) 3 ml IVFLUSH QSHIFT REPLACED BY [facility] Last Admin: 11/01/22 09:47 Dose: 3 ml Documented By: VICTOR HUGO Sodium Zirconium Cyclosilicate (Sodium Zirconium Cyclosilicate 10 Gm Powd.Pack) 10 gm PO TID REPLACED BY [facility] Stop: 11/01/22 21:01 Last Admin: 11/01/22 09:46 Dose: 10 gm Documented By: VICTOR HUGO Tamsulosin HCl (Tamsulosin Hcl 0.4 Mg Capsule) 0.4 mg PO BEDTIME REPLACED BY [facility] Last Admin: 10/31/22 20:51 Dose: 0.4 mg Documented By: LUCY Labs CBC & Chem 7: 10/31/22 06:23 11/01/22 08:33 Labs: Laboratory Results - last 24 hr 10/31/22 10/31/22 11/01/22 13:09 18:52 00:13 Anion Gap Estim Creat Clear Calc Estimated GFR POC Glucose 100 122 H 102 Random Glucose Calcium 11/01/22 11/01/22 05:57 08:33 Anion Gap 13 Estim Creat Clear Calc 33.7 Estimated GFR 35 POC Glucose 79 Random Glucose 90 Calcium 8.3 L Assessment and Plan (1) Hyperkalemia: Status: Acute Plan 67-year-old male with pertinent history of hep C (untreated), urinary obstruction who was sent to the emergency department by his PCP for evaluation of hyperkalemia and BETSY. #. Elevated creatinine, likely CKD3 -at discharge from [facility], his creatinine was down from 13 to 3.1. -At presentation this visit, his creatinine 1.88..>2.05. #. Hyperkalemia--cause unclear presently 5.2, Lokelma to keep down, Nephrology to make further recommendation #. Hepatitis-C: Diagnosed while at [facility]. Outpatient f/u #. Urinary retention: Failed voiding trial at [facility]. Initiated Flomax. Will need urology outpatient follow-up or repeat voiding trial #. Elevated blood glucose: No history of diabetes. Initiated Accu-Cheks with sliding scale insulin. A1c 5.7 #. Macrocytic anemia: Obtain B12, folic acid, likely anemia of chronic disease due to CKD DVT prophylaxis: Lovenox 40 mg daily need for inpatient: management of hyperkalemia Quality Stroke Does the patient have a stroke diagnosis?: No VTE Prior VTE?: No VTE Risk Level:: Medical - moderate - high VTE Device Contraindication: Treatment Not Indicated VTE Drug Contraindication: N/A - Med Ordered
[2022-11-01 11:56] LABS: Glucose, Whole Blood 97 mg/dL (60-115)
[2022-11-01 12:00] VITALS: BP 124/77; PULSE 80; RESP 16; TEMP 36.3; O2SAT 97
[2022-11-01 15:47] VITALS: BP 101/69; PULSE 78; RESP 18; TEMP 37; O2SAT 98
[2022-11-01 16:05] LABS: Glucose, Whole Blood 120 mg/dL (60-115)
--- NOTE | 2022-11-01 17:15 | PM.PNNEP ---
Subjective Subjective Date of Service: 11/01/22 Interval history: f/u on hyperkalemia interval history: K still high 5.2 Physical Exam Vital Signs: Vital Signs: Last Vital Signs Temp 98.6 F 11/01/22 15:47 Pulse 78 11/01/22 15:47 Resp 18 11/01/22 15:47 BP 101/69 11/01/22 15:47 Pulse Ox 98 11/01/22 15:47 O2 Del Method 11/01/22 15:47 BMI result Body Mass Index 21.9 Const: Other: General: AO X 3, no acute distress Resp: CTA bilateral CVS: S1,S2,RRR GI: +BS, NT, no distention Skin: No rash Neuro: motor grossly intact Psych: appropriate affect Objective Data Labs CBC & Chem 7: 10/31/22 06:23 11/01/22 08:33 Labs: Laboratory Results - last 24 hr 10/31/22 11/01/22 11/01/22 18:52 00:13 05:57 Sodium Potassium Chloride Carbon Dioxide Anion Gap BUN Creatinine Estim Creat Clear Calc Estimated GFR POC Glucose 122 H 102 79 Random Glucose Calcium 11/01/22 11/01/22 11/01/22 08:33 11:53 15:45 Sodium 136 Potassium 5.2 H Chloride 103 Carbon Dioxide 25 Anion Gap 13 BUN 54 H Creatinine 1.91 H Estim Creat Clear Calc 33.7 Estimated GFR 35 POC Glucose 97 120 H Random Glucose 90 Calcium 8.3 L Microbiology Microbiology Results: Microbiology 10/31/22 Unknown Urine Catheterized - Mejía Catheter Urine Culture - Final Procedures Date of Service Date of Service: 11/01/22 Assessment & Plan Assessment and plan (1) Hyperkalemia: Status: Acute (2) BETSY (acute kidney injury): Status: Acute (3) Anemia, macrocytic: Status: Acute (4) CKD (chronic kidney disease) stage 3, GFR 30-59 ml/min: Status: Acute Plan Pt with obstructive BETSY with recovery to creat 1.9 so far, underlying obstructive CKD presented with hyperkalemia sent in by PCP after labs done Potassium is in normal range now Recommend: Education about low K diet Discharge on lokelma 10 grams Friday, Fri and Friday (or kayexalate) Urology consult MEENA after discharge Anemia management will be arranged through our nephrology clinic: check iron stores while here Time Spent With Patient Time: Total time managing care of this patient today ____ minutes. Progress Note: Quality Stroke Does the patient have a stroke diagnosis?: No
[2022-11-01 20:00] VITALS: BP 132/84; PULSE 90; RESP 18; TEMP 36.3; O2SAT 97
[2022-11-01 20:18] LABS: Glucose, Whole Blood 105 mg/dL (60-115)
[2022-11-01] MEDS: Tamsulosin HCL 0.4 MG CAPSULE PO (21:27)
[2022-11-02 04:00] VITALS: BP 128/88; PULSE 69; RESP 18; TEMP 36.4; O2SAT 96
[2022-11-02 06:16] LABS: Glucose, Whole Blood 88 mg/dL (60-115)
[2022-11-02 07:49] VITALS: BP 125/85; PULSE 78; RESP 16; TEMP 37; O2SAT 98
[2022-11-02 08:44] LABS: Anion Gap 14 (12-20); Blood Urea Nitrogen 61 mg/dL (9-16); Calcium 8.8 mg/dL (8.4-10.2); Carbon Dioxide 22 mmol/L (22-29); Chloride 106 mmol/L (96-108); Creatinine Clr Calc Pharmacy 34.6; Estimated Glomerular Filt Rate 36; Glucose Random 90 mg/dL (60-115); Potassium 4.4 mmol/L (3.3-5.1); Sodium 138 mmol/L (135-145)
[2022-11-02] MEDS: 0.9 % Sodium Chloride Flush 3 ML SYRINGE IVFLUSH (09:40)
[2022-11-02] MEDS: Nicotine 21 MG PATCH.TD24 TRANSDERMA (09:40)
[2022-11-02] MEDS: Famotidine 20 MG TABLET 40 MG PO (09:40)
[2022-11-02 11:20] VITALS: BP 136/88; PULSE 78; RESP 17; TEMP 36.5; O2SAT 96
[2022-11-02 11:47] LABS: Glucose, Whole Blood 90 mg/dL (60-115)
--- NOTE | 2022-11-02 11:53 | PM.PNNEP ---
Subjective Subjective Date of Service: 11/02/22 Interval history: f/u on hyperkalemia AND OBSTRUCTIVE Betsy/ckd Feeling better, ready to go home Physical Exam Vital Signs: Vital Signs: Last Vital Signs Temp 97.7 F 11/02/22 11:20 Pulse 78 11/02/22 11:20 Resp 17 11/02/22 11:20 BP 136/88 11/02/22 11:20 Pulse Ox 96 11/02/22 11:20 O2 Del Method 11/02/22 11:20 BMI result Body Mass Index 21.9 Const: Other: General: AO X 3, no acute distress Resp: CTA bilateral CVS: S1,S2,RRR GI: +BS, NT, no distention Skin: No rash Neuro: motor grossly intact Psych: appropriate affect Objective Data Labs CBC & Chem 7: 10/31/22 06:23 11/02/22 07:56 Labs: Laboratory Results - last 24 hr 11/01/22 11/01/22 11/01/22 11:53 15:45 20:14 Sodium Potassium Chloride Carbon Dioxide Anion Gap BUN Creatinine Estim Creat Clear Calc Estimated GFR POC Glucose 97 120 H 105 Random Glucose Calcium 11/02/22 11/02/22 11/02/22 05:41 07:56 11:18 Sodium 138 Potassium 4.4 Chloride 106 Carbon Dioxide 22 Anion Gap 14 BUN 61 H Creatinine 1.86 H Estim Creat Clear Calc 34.6 Estimated GFR 36 POC Glucose 88 90 Random Glucose 90 Calcium 8.8 D Microbiology Microbiology Results: Microbiology 10/31/22 Unknown Urine Catheterized - Hoff Catheter Urine Culture - Final Procedures Date of Service Date of Service: 11/02/22 Assessment & Plan Assessment and plan (1) CKD (chronic kidney disease) stage 3, GFR 30-59 ml/min: Status: Acute (2) Hyperkalemia: Status: Acute (3) BETSY (acute kidney injury): Status: Acute (4) Anemia, macrocytic: Status: Acute Plan Pt has ARRIOLA causing severe BETSY with creatinine now continuing to improve after decompression of bladder with hoff cath He presented with hyperkalemia. His potassium is better now. He is ready for discharge Recommend: Discharge on at least twice weekly lokelma 10 grams I will arrange for renal f/u but he needs a Urology appt MEENA for definitive treatment of BPH and ARRIOLA From point of view of anemia: replete iron stores and watch for recovery with improving renal function Time Spent With Patient Time: Total time managing care of this patient today ____ minutes. Progress Note: Quality Stroke Does the patient have a stroke diagnosis?: No
--- NOTE | 2022-11-02 13:12 | PM.UROCN ---
History of Present Illness Consult details Consult date: 11/02/22 Narrative: Consulting complaint - urinary retention 67-year-old male Recent admission to [facility] with urinary retention and hyperkalemia - new diagnosis Hep C Mejía catheter placed 10/06 Failed initial voiding trial 10/13 Had been started on tamsulosin Admit to [facility] for hyperkalemia and BETSY Response to fluids Start finasteride Follow-up for voiding trial Review of Systems Constitutional: Constitutional: Reports as per HPI and Reports no additional constitutional complaints Cardiovascular: Cardiovascular: Reports as per HPI and Reports no additional cardiovascular complaints Respiratory: Respiratory: Reports as per HPI and Reports no additional respiratory complaints Gastrointestinal: Gastrointestinal: Reports as per HPI and Reports no additional gastrointestinal complaints Genitourinary: Genitourinary: Reports as per HPI Musculoskeletal: Musculoskeletal: Reports no additional musculoskeletal complaints and Reports as per HPI Neurologic: Reports system reviewed and no additional complaints, except as documented and Reports as per HPI PMFSH Past Medical History Medical History (Updated 11/01/22 @ 17:16 by Madison Hogan MD) Hepatitis C test positive MSSA bacteremia Urinary retention Social History Social History Household Members: None Housing: House Do you presently have visiting nurse or other home services: No Alcohol intake: former Patient Tobacco Use Status: Current everyday Tobacco user Tobacco use type: Cigarette Cigarette Packs Per Day: 1.5 Cigarettes Per Day: 30.0 Advance Directives Date on File: 10/31/22 service: No Current occupational status: retired Meds Allergies Allergy/AdvReac Type Severity Reaction Status Date / Time No Known Allergies Allergy Verified 10/30/22 13:04 Active Medications: Current Medications Acetaminophen (Acetaminophen 325 Mg Tablet) 650 mg PO Q6H PRN PRN Reason: Pain, Mild (Pain Scale 1-3) Dextrose (Dextrose 50 % 25 Gm/50 Ml Syringe) 25 gm IVPUSH Q15M PRN; Protocol PRN Reason: per Hypoglycemia Standing Ord. Enoxaparin Sodium (Enoxaparin Sodium 40 Mg/0.4 Ml Syringe) 40 mg SUBCUT Q24H [facility] Last Admin: 11/02/22 00:35 Dose: Not Given Famotidine (Famotidine 20 Mg Tablet) 40 mg PO DAILY [facility] Last Admin: 11/02/22 09:40 Dose: 40 mg Fluticasone Propionate (Fluticasone Propionate Nasal 16 Gm Smock) 1 spray NOSTRIL-B DAILY [facility] Last Admin: 11/02/22 12:19 Dose: Not Given Glucose (Glucose Gel 15 Gm Gel..Gram.) 15 gm PO Q15M PRN; Protocol PRN Reason: per Hypoglycemia Standing Ord. Insulin Human Lispro (Insulin Lispro 100 Unit/Ml 3 Ml Vial) 0 unit SUBCUT Q6H [facility]; Protocol Last Admin: 11/02/22 05:58 Dose: Not Given Melatonin (Melatonin 3 Mg Tablet) 6 mg PO BEDTIME PRN PRN Reason: Insomnia Nicotine (Nicotine 21 Mg Patch.Td24) 21 mg TRANSDERMA DAILY [facility] Last Admin: 11/02/22 09:40 Dose: 21 mg Ondansetron HCl (Ondansetron Hcl 4 Mg/2 Ml Vial) 4 mg IVPUSH Q8H PRN PRN Reason: Nausea and Vomiting Pharmacy Consult (Consult Rx Perform Med Rec) 1 each MISCELLANE ONCE PRN PRN Reason: Consult order Sodium Chloride (0.9 % Sodium Chloride Flush 3 Ml Syringe) 3 ml IVFLUSH QSHIFT [facility] Last Admin: 11/02/22 09:40 Dose: 3 ml Tamsulosin HCl (Tamsulosin Hcl 0.4 Mg Capsule) 0.4 mg PO BEDTIME [facility] Last Admin: 11/01/22 21:27 Dose: 0.4 mg Home Medications Medication Instructions Recorded Confirmed Last Taken Type famotidine 40 mg tablet 1 tab PO DAILY 10/30/22 10/30/22 10/30/22 History fluticasone propionate 50 1 spray intranasal DAILY 10/30/22 10/30/22 10/30/22 History mcg/actuation nasal spray,suspension Physical Exam Vital Signs: Vital Signs: Last Vital Signs Temp 97.7 F 11/02/22 11:20 Pulse 78 11/02/22 11:20 Resp 17 11/02/22 11:20 BP 136/88 11/02/22 11:20 Pulse Ox 96 11/02/22 11:20 O2 Del Method 11/02/22 11:20 BMI result Body Mass Index 21.9 Const: General: cooperative, healthy appearing, comfortable and no acute distress Orientation/consciousness: patient oriented x3 HEENT: Face and sinus: Yes normal facial exam Mouth: moist mucous membranes Neck: Neck: Yes normal visual inspection, Yes full ROM and Yes trachea midline Chest: Chest palpation & inspection: normal inspection of the chest Resp: Effort & Inspection: normal respiratory effort, able to speak in complete sentences and no respiratory distress GI: Inspection: Yes normal to inspection Back/Spine/Pelvis: Cervical Spine: normal cervical lordosis Thoracic/Lumbar Spine: thoracic and lumbar spine normal to inspection Skin: General skin exam: no rashes or lesions noted Neuro: General: patient oriented x3, tone normal and moves all extremities Extrem: General: Yes normal to inspection and Yes capillary refill normal Results Labs Result diagrams: 10/31/22 06:23 11/02/22 07:56 Labs: Abnormal lab results 11/01/22 11/02/22 Range/Units 15:45 07:56 BUN 61 H (9-16) mg/dL Creatinine 1.86 H (0.5-1.4) mg/dL POC Glucose 120 H (60-115) mg/dL BMP 11/02/22 07:56 Sodium 138 Potassium 4.4 Chloride 106 Carbon Dioxide 22 BUN 61 H Creatinine 1.86 H Calcium 8.8 D Urine 10/31/22 Range/Units 06:30 Urine Color Yellow Urine Appearance Clear Urine pH 6.5 (5.0-9.0) Ur Specific [place] <= 1.005 (1.005-1.025) Urine Protein Negative (Neg-Trace) mg/dL Urine Glucose (UA) Negative (Negative) mg/dL All other labs normal. Assessment and Plan (1) Urinary retention: Status: Acute Plan MTOPS therapy Start finasteride [place] trial end of next week Time Spent With Patient Time: Total time managing care of this patient today ____ minutes. Procedures Date of Service Date of Service: 11/02/22
--- NOTE | 2022-11-02 13:33 | PM.DS ---
DS: Providers Provider Date of Service: 11/02/22 Date of admission: 10/31/22 00:43 Primary care physician: Yrn Gonsales MD Consults: 10/31/22 00:56 Consult to Nephrology Routine Consulting Provider: Saurav Rehman Reason for consultation: elevated creatinine and hyperkalemia 11/02/22 07:52 Consult to Urology Routine Consulting Provider: Charles Pires Reason for consultation: obstructive uropathy Has provider been notified: No DS: Diagnosis Discharge Diagnosis (1) CKD (chronic kidney disease) stage 3, GFR 30-59 ml/min: Status: Inactive (2) Hyperkalemia: Status: Resolved (3) BETSY (acute kidney injury): Status: Resolved (4) Anemia, macrocytic: Status: Inactive DS: Summary Hospital Course Hospital Course: admission HPI Chief Complaint: High potassium This is a 67-year-old male with pertinent history of hep C (untreated), urinary obstruction who was sent to the emergency department by his PCP for evaluation of hyperkalemia and BETSY.? Patient was recently admitted at [facility] and discharged on 10/13 for postrenal BETSY.? Hep C was diagnosed during hospital course.? Patient failed voiding trial and was discharged on Hoff catheter for repeat voiding trial.? Patient had been seen a doctor for years and was established with a PCP which she saw 2 days ago.? Blood work was done and he was noted to have an BETSY and high potassium and was sent to the ER for further evaluation.? Patient has no complaints and denies fever, chills, chest discomfort, shortness of breath, abdominal pain, changes in urinary or bowel habits. Of note, patient was admitted at [facility] from 10/06 to 10/17 urine retention, post renal BETSY, hyperkalemia, hyponatremia and MSSA bacteremia.? He was discharged with a Hoff catheter and on cefazolin with end date 10/21. In the emergency department, patient was found have an elevated creatinine and hyperkalemia. Hospital course: #.? Elevated creatinine/BETSY when recently discharged from [facility], his creatinine was down from 13 to 3.1.?Here his creatinine was up to 2.05 and has come down to 1.86 and stable. To avoid nephrotoxin and NSAID. He was hydrated to bring creatinine down. #.? Hyperkalemia--Potassium was as high as 5.9 and has been given lokelm and to bring potassium to no2w 4.4.There was no acidosis, nephrology saw him and recommends follow up in the office, Dr. Delgado will arrange for outptient follow #.? Hepatitis-C:? Diagnosed while at [facility].? Will need outpatient follow-up and treatment #.? Urinary retention: Failed voiding trial at [facility].? On Flomax and has a hoff catheter. #.? Elevated blood glucose:? No history of diabetes.? Initiated Accu-Cheks with sliding scale insulin.? Obtaining A1c #.? Macrocytic anemia:? Obtain B12, folic acid Time Spent with Patient Time attestation: Total time managing care of this patient today ____ minutes. Discharge coordination time: Greater than 30 minutes Quality: Safe Use of Opioids Does Pt have an Active Cancer Diagnosis on the Problem List?: No Quality: Stroke Does the patient have a stroke diagnosis?: No Physical Exam Vital Signs: Vital Signs: Last Vital Signs Temp 97.7 F 11/02/22 11:20 Pulse 78 11/02/22 11:20 Resp 17 11/02/22 11:20 BP 136/88 11/02/22 11:20 Pulse Ox 96 11/02/22 11:20 O2 Del Method 11/02/22 11:20 BMI result Body Mass Index 21.9 DS: Data Data Completed and Pending Labs on day of discharge: Laboratory Results - last 24 hr 11/01/22 11/01/22 11/02/22 15:45 20:14 05:41 Sodium Potassium Chloride Carbon Dioxide Anion Gap BUN Creatinine Estim Creat Clear Calc Estimated GFR POC Glucose 120 H 105 88 Random Glucose Calcium 11/02/22 11/02/22 07:56 11:18 Sodium 138 Potassium 4.4 Chloride 106 Carbon Dioxide 22 Anion Gap 14 BUN 61 H Creatinine 1.86 H Estim Creat Clear Calc 34.6 Estimated GFR 36 POC Glucose 90 Random Glucose 90 Calcium 8.8 D Discharge Plan Discharge Anticipated Discharge Date/Time: 11/02/22 13:12 Patient Disposition: Home, Self-Care Referrals: Yrn Gonsales MD [Primary Care Provider] - 2 days Discharge Medications: New finasteride 5 mg tablet 5 mg PO DAILY 30 Days Qty: 30 1RF Rx Instructions: Daily tablet doxazosin 8 mg tablet 8 mg PO BEDTIME 30 Days Qty: 30 1RF Lokelma 10 gram powder in packet 10 g PO .twice a week Qty: 30 0RF Rx Instructions: 10 g orally twice a week Friday and Friday Continued famotidine 40 mg tablet 1 tab PO DAILY fluticasone propionate 50 mcg/actuation [place],Suspension 1 spray INTRANASAL DAILY Rx Instructions: administer into each nostril Discharge Orders: Discharge Order (Routine); Ordered 11/02/22 Ordered By: Klaus Deras Diet: Advance to usual diet Activity on Discharge: As tolerated Stand Alone Forms: Patient Portal Discharge page Care Plan Goals: Keep potassium regulated Health Concerns: Chronic kidney disease high potassium Plan of Treatment: Your potassium was noted to be elevated at 5.3, you were given a medication called Robertma and your potassium normalized. You were also noted to be anemic on laboratory studies, please follow-up with your primary care provider in regards to this issue. If you start bleeding per rectum or vomiting blood or bleeding from anywhere you should report to emergency department immediately. You also noted to have an acute kidney injury that improved after fluid hydration, please speak to your PCP about this issue as well and follow up with your Kidney doctor. You also had urinary retention and had a hoff catheter inserted and you should follow up with your urologist for more guidance, call as soon as possible for an appointment. Take Robertma as directed Assessment: as above Patient Instructions: Acute Kidney Injury (DC), Hyperkalemia (ED), Anemia (ED) Discharge Date/Time: 11/02/22 15:25
--- NOTE | 2022-11-02 14:09 | MHC.CM.PN ---
PT DISCHARGING HOME TODAY WITH NO SERVICES ORDERED PT TO ARRANGE TRANSPORT
[2022-11-02] MEDS: Finasteride 5 MG TABLET PO (14:49)
== END 2022-11-02 15:25 | disposition home or self-care (01) ==
LOC: HO.ED 17:50 → HO.EDOVER 10-31 00:47 → HO.IMC 10-31 20:38
PROVIDERS: Emergency Medicine Emergency Medical Services; Physician Assistant; Admitting Provider Student in an Organized Health Care Education/Training Program; Emergency Provider Internal Medicine; PCP Internal Medicine; Visit Provider Internal Medicine
DX: I12.9 Hypertensive chronic kidney disease with stage 1 through stage 4 chronic kidney disease, or unspecified chronic kidney disease (principal); E87.5 Hyperkalemia; R33.9 Retention of urine, unspecified; D53.9 Nutritional anemia, unspecified; N18.30 Chronic kidney disease, stage 3 unspecified; N13.9 Obstructive and reflux uropathy, unspecified; R73.02 Impaired glucose tolerance (oral); R51.9 Headache, unspecified; Z20.822 Contact with and (suspected) exposure to COVID-19; Z79.899 Other long term (current) drug therapy
CPT/HCPCS: 36415; 70450; 74176; 80048; 80053; 81001; 82550; 82607; 82746; 82947; 83036; 83735; 85025; 87086; 87635; 93005; 94640; 96372; 96374; 96375; 96376; 99219; 99285; J0610; J1650

== ENCOUNTER 2023-08-23 09:59 | Outpatient (AMB) | payer MEDICARE, SELFPAY ==
--- NOTE | 2023-08-23 11:10 | MHC.OFFWIV ---
Intake Vital Signs 08/23/23 11:20 Weight 156 lb BP 108/72 Blood Pressure Location Rt brachial Position Sitting Pulse 102 H Pulse Source Pulse Oximeter Temp 98.3 F Temp Source Oral Pulse Oximetry (%) 93 Oxygen Delivery Method Room Air Intake Visit Reasons: EP, sore throat (masked) Patient Tobacco Use Status: Current everyday Tobacco user Allergies No Known Allergies Allergy (Verified 08/23/23 11:29) Medication List - Last Reconciled 08/23/23 by Roxana Puente CNP doxazosin 8 mg PO BEDTIME 30 days famotidine 1 tab PO DAILY finasteride 5 mg PO DAILY 30 days fluticasone propionate 50 mcg/actuation 1 spray intranasal DAILY pantoprazole 40 mg PO BID prochlorperazine maleate 10 mg PO Q6H PRN sodium zirconium cyclosilicate (Lokelma) 10 grams PO .twice a week HPI HPI Comments History of Present Illness Details 68-year-old male presents for sick visit, complaining of sore throat x 6 days, initially reported headache and abdominal pain x 3 days, which has since subsided, he also reports dysphagia due to pain. He does have active laryngitis which he reports has improved since Friday, and a chronic smokers cough which he denies is new. He denies fever, chills, CP, SOB, dizziness, changes in color of sputum, wheezes, sinus pressure, changes in bowels or bladder. [facility] Medical History CKD (chronic kidney disease) stage 3, GFR 30-59 ml/min Urinary retention MSSA bacteremia Hepatitis C test positive Anemia, macrocytic Social History Household Members: None Housing: House Do you presently have visiting nurse or other home services: No Alcohol intake: former Patient Tobacco Use Status: Current everyday Tobacco user Tobacco use type: Cigarette Cigarette Packs Per Day: 1.5 Cigarettes Per Day: 30.0 Advance Directives Date on File: 10/31/22 service: No Current occupational status: retired Review of Systems Const All systems reviewed & are unremarkable except as noted in HPI and below Physical Exam Vital Signs: Last Vital Signs Temp 98.3 F 08/23/23 11:20 Pulse 102 H 08/23/23 11:20 BP 108/72 08/23/23 11:20 Pulse Ox 93 08/23/23 11:20 Oxygen Delivery Method Room Air 08/23/23 11:20 Const General: healthy appearing and no acute distress Nutritional Appearance: well nourished Orientation/consciousness: patient oriented x3 Limitations: no limitations HEENT Head: Yes normal to inspection, Yes normocephalic and Yes atraumatic Ears: hearing grossly normal bilaterally and TM's normal bilaterally General nose exam: Normal nasal mucous membranes and turbinates present Face and sinus: Yes sinuses nontender Mouth: moist mucous membranes Throat: Yes posterior oropharynx abnormal (intense erythema of tonsils and pharynx, yellow exudate) Eyes General: appearance normal, both eyes and all related structures Periorbital: periorbital findings normal Eyelids: Yes eyelids normal Conjunctivae: conjunctivae normal Neck Other: tender, enlarged anterior cervical glands Neck: Yes no meningeal signs Chest Chest palpation & inspection: normal inspection of the chest Resp Effort & Inspection: normal respiratory effort and Actively coughing Quality: dry Auscultation: rhonchi upper bilaterally and no wheezes Cardio Rate: regular rate Rhythm: regular rhythm Heart sounds: S1 normal heart sound present and S2 normal heart sound present Peripheral pulses: Peripheral pulses 2+ throughout GI Palpation (GI): Soft to palpation, nontender and No hepatosplenomegaly present Percussion: Yes normal to percussion Auscultation: normal bowel sounds General: Yes no CVA tenderness Back/Spine/Pelvis Back: no CVA tenderness Skin General skin exam: no rashes or lesions noted and turgor normal Neuro General: patient oriented x3, gait normal, moves all extremities and no meningeal signs Extrem General: Yes normal to inspection, Yes capillary refill normal, Yes no joint enlargement and Yes no clubbing, cyanosis or edema Psych Appearance: well kempt Mental Status: mental status grossly normal Speech and movement: Normal speech and movement present Affect: normal affect Attitude: cooperative Results AMB Rapid Strep AMB Rapid Strep Negative Last Edit by MEGHAN Phan on 08/23/23 11:32 Results Reviewed Results Reviewed: Laboratory Last Values Strep Scn Rapid Clinic Negative 08/23/23 11:31 Assessment & Plan Assessment & Plan (1) Acute erythematous tonsillitis: Code(s): J03.90 - Acute tonsillitis, unspecified Plan: 68-year-old male seen today for acute erythematous tonsillitis. Rapid Strep test negative Covid/RSV/Influenza PCR negative warm salt water gargle rinses tid Acetaminophen 1000 mg po q 6-8hrs prn for pain and discomfort. Encouraged Cool liquids, soft foods, and popsicles. PCN 500 mg po bid x 7 days; encouraged to take w/ food to reduce GI upset. Encouraged to f/u w/ PCP, and return to office for worsening or unresolved symptoms Orders: Orders SARS-CoV2/FLU/RSV 08/23/23 J02.9 - Acute pharyngitis, unspecified AMB Rapid Strep Screen 08/23/23 Z13.9 - Encounter for screening, unspecified Medications: New penicillin V potassium 500 mg PO BID 7 days 14 tabs 0RF J03.90 - Acute tonsillitis, unspecified Coding Level of Care Code Est Pt Level 3 (05989) Diagnoses Acute erythematous tonsillitis J03.90
[2023-08-23 11:20] VITALS: BP 108/72; PULSE 102; TEMP 36.8; O2SAT 93
== END 2023-08-23 11:40 | disposition home or self-care (01) ==
PROVIDERS: PCP Internal Medicine; Visit Provider Nurse Practitioner Acute Care
DX: J03.90 Acute tonsillitis, unspecified (principal)
CPT/HCPCS: 87880; 99051; 99213

== ENCOUNTER 2023-08-23 11:41 | Outpatient (REF) | payer MEDICARE, SELFPAY ==
[2023-08-23 14:14] LABS: Influenza A PCR NEGATIVE (Negative); Influenza B PCR NEGATIVE (Negative); Resp Syncy Virus RNA Qual PCR NEGATIVE (Negative); SARS COV2 PCR INHOUSE NEGATIVE (Negative)
== END 2023-08-23 11:42 | disposition home or self-care (01) ==
LOC: HO.LAB 11:41
PROVIDERS: Visit Provider Nurse Practitioner Acute Care
DX: J02.9 Acute pharyngitis, unspecified (principal); Z20.822 Contact with and (suspected) exposure to COVID-19
CPT/HCPCS: 0241U